=== PATIENT | female | born 2000 | race African-American/Black ===

== ENCOUNTER 2020-09-14 20:08 | Emergency (ER) | payer OTHER ==
[~2020-09-14] VITALS: Ht 157.5 cm; Wt 47.6 kg
[2020-09-14] MEDS ORDERED: OXYC-128 PO (21:07)
[2020-09-14 21:15] VITALS: BP 105/59
--- NOTE | 2020-09-14 21:17 | NUR ---
Patient discharged to home in stable condition. Written and verbal after care instructions given. Patient verbalizes understanding of instructions. Stressed follow up or return to ER for worsening s/s.
== END 2020-09-14 21:24 | disposition home or self-care (01) ==
LOC: ER 20:08
DX: M94.0 Chondrocostal junction syndrome [Tietze] (principal); Z91.013 Allergy to seafood
CPT/HCPCS: 93005; A4663

== ENCOUNTER 2020-10-01 11:38 | Emergency (ER) | payer OTHER ==
[~2020-10-01] VITALS: Ht 157.5 cm; Wt 48.1 kg
[~2020-10-01 11:38] MED LIST: OXYC-128 PO
--- NOTE | 2020-10-01 11:50 | NUR ---
Dr Beatty at the bedside for MSE.
[2020-10-01 12:11] LABS: BASOPHILS % (AUTO) 0.7 % (0.0-2.0); EOSINOPHILS # (AUTO) 0.1 K/uL (0.0-0.7); EOSINOPHILS % (AUTO) 2.5 % (0.0-7.0); HEMATOCRIT 38.6 % (31.2-41.9); HEMOGLOBIN 13.1 g/dL (10.9-14.3); LYMPHOCYTES # (AUTO) 1.4 K/uL (20.0-40.0); LYMPHOCYTES % (AUTO) 31.9 % (20.5-51.5); MEAN CORPUSCULAR HGB CONC 34 g/dL (32.3-35.6); MEAN CORPUSCULAR VOLUME 94.1 fL (75.5-95.3); MONOCYTES # (AUTO) 0.5 K/uL (2.0-10.0); MONOCYTES % (AUTO) 11.2 % (0.0-11.0); NEUTROPHILS # (AUTO) 2.4 K/uL (1.8-8.9); NEUTROPHILS % (AUTO) 53.7 % (38.5-71.5); PLATELET COUNT (AUTO) 192 K/uL (179-408); RED BLOOD CELL COUNT(AUTO) 4.11 MIL/uL (3.63-4.92); WHITE BLOOD COUNT (AUTO) 4.5 K/uL (3.8-11.8)
[2020-10-01 12:18] LABS: CARBON DIOXIDE 26 mmol/L (21-32); CHLORIDE 107 mmol/L (98-107); CREATININE 0.7 mg/dL (0.6-1.3); GLUCOSE 79 mg/dL (74-106); POTASSIUM 3.5 mmol/L (3.5-5.1); UREA NITROGEN, BLOOD 9 mg/dL (7-18)
[2020-10-01 12:46] VITALS: BP 104/60
== END 2020-10-01 12:47 | disposition home or self-care (01) ==
LOC: ER 11:38
DX: N92.0 Excessive and frequent menstruation with regular cycle (principal); N94.6 Dysmenorrhea, unspecified; Z82.49 Family history of ischemic heart disease and other diseases of the circulatory system; Z91.013 Allergy to seafood
CPT/HCPCS: 36415; 76856; 85025; 86850; 86900; 86901; A4663

== ENCOUNTER 2020-10-24 18:22 | Emergency (ER) | payer OTHER ==
[~2020-10-24] VITALS: Ht 157.5 cm; Wt 49.9 kg
[2020-10-24] MEDS ORDERED: OXYC-128 PO (18:54)
--- NOTE | 2020-10-24 19:17 | NUR ---
PT WAS EVALUATED BY DR TANG. PT WAS D/C'd TO HOME. D/C INSTRUCTIONS GIVEN TO THE PT BY DR TANG.
[2020-10-24 19:18] VITALS: BP 125/69
== END 2020-10-24 19:18 | disposition home or self-care (01) ==
LOC: ER 18:25
DX: M94.0 Chondrocostal junction syndrome [Tietze] (principal); Z91.013 Allergy to seafood
CPT/HCPCS: A4663

== ENCOUNTER 2021-02-02 13:29 | Emergency (ER) | payer MEDICAID ==
[~2021-02-02] VITALS: Ht 157.5 cm; Wt 49.9 kg
[2021-02-02 14:19] LABS: *URINE HCG, QUAL NEGATIVE (NEGATIVE)
[2021-02-02] MEDS ORDERED: AMOX500C2 PO (14:39)
[2021-02-02] MEDS ORDERED: IBUPROFEN 600 MG TABLET PO ONE (14:45)
[2021-02-02] MEDS ORDERED: ACETAMINOPHEN ES 500 MG TABLET PO ONE (14:45)
[2021-02-02] MEDS ORDERED: ACETAMINOPHEN ES 500 MG TABLET ONE (14:51)
[2021-02-02] MEDS ORDERED: IBUPROFEN 600 MG TABLET ONE (14:51)
== END 2021-02-02 14:48 | disposition home or self-care (01) ==
LOC: ER 13:29
DX: J02.0 Streptococcal pharyngitis (principal); Z91.013 Allergy to seafood
CPT/HCPCS: 84703; 86403; A4663; A9150

== ENCOUNTER 2021-10-22 19:40 | Emergency (ER) | payer MEDICAID ==
[~2021-10-22] VITALS: Ht 157.5 cm; Wt 52.2 kg
[~2021-10-22 19:40] MED LIST changes: +AMOX500C2 PO
--- NOTE | 2021-10-22 20:00 | NUR ---
Female engine test cell technician accompanied female patient for MSE
[2021-10-22] MEDS ORDERED: OXYC-128 PO (20:21)
[2021-10-22] MEDS ORDERED: OXYCODONE/APAP 5-325 MG TABLET ONE (20:26)
--- NOTE | 2021-10-22 20:27 | NUR ---
Patient discharged to home in stable condition. Written and verbal after care instructions given. Patient verbalizes understanding of instructions. Stressed follow up or return to ER for worsening s/s. Patient is a/ox4, NAD noted, patient is able to walk with steady gait
[2021-10-22 20:28] VITALS: BP 107/74
[2021-10-22] MEDS ORDERED: OXYCODONE/APAP 5-325 MG TABLET PO ONE (20:45)
== END 2021-10-22 20:45 | disposition home or self-care (01) ==
LOC: ER 19:40
DX: M54.89 Other dorsalgia (principal)
CPT/HCPCS: A4663

== ENCOUNTER 2021-10-24 20:45 | Emergency (ER) | payer SELFPAY ==
--- NOTE | 2021-10-24 21:50 | NUR ---
Patient was called to be triaged but was not in the waiting room or outside of ER.
--- NOTE | 2021-10-24 22:00 | NUR ---
Patient was called to be triaged but was not present in the waiting room or outside of ER.
--- NOTE | 2021-10-24 23:00 | NUR ---
Patient was called to be triaged but was not present in the waiting room or outside of ER. PATIENT WAS NOT TRIAGED OR SEEN BY ERMD.
== END 2021-10-24 23:00 | disposition left against medical advice (07) ==
LOC: ER 20:52
DX: Z53.21 Procedure and treatment not carried out due to patient leaving prior to being seen by health care provider (principal)

== ENCOUNTER 2021-10-27 16:42 | Emergency (ER) | payer MEDICAID ==
[~2021-10-27] VITALS: Ht 157.5 cm; Wt 52.2 kg
[2021-10-27] MEDS ORDERED: MORPHINE SULFATE 2 MG/1 ML DISP.SYRIN IV ONE (17:00)
[2021-10-27] MEDS ORDERED: IV NORMAL SALINE 500 ML BAG IV ONE (17:00)
--- NOTE | 2021-10-27 17:15 | NUR ---
Female medical record librarian accompanied female patient for buttocks examination.
[2021-10-27] MEDS ORDERED: MORPHINE SULFATE 4 MG/1 ML DISP.SYRIN ONE (17:27)
[2021-10-27 17:35] LABS: HEMATOCRIT 37.5 % (31.2-41.9); MEAN CORPUSCULAR VOLUME 92.7 fL (75.5-95.3); PLATELET COUNT (AUTO) 260 K/uL (179-408)
[2021-10-27 17:40] LABS: CARBON DIOXIDE 27 mmol/L (21-32); CHLORIDE 101 mmol/L (98-107); CREATININE 0.7 mg/dL (0.6-1.3); GLUCOSE 72 mg/dL (74-106); POTASSIUM 3.2 mmol/L (3.5-5.1); UREA NITROGEN, BLOOD 7 mg/dL (7-18)
--- NOTE | 2021-10-27 18:00 | NUR ---
Dr. Thomas notified about patient's seafood allergy. stated that patient is clear to receive IV contrast.
[2021-10-27] MEDS ORDERED: IV NORMAL SALINE 250 ML IV ONE (18:20)
[2021-10-27] MEDS ORDERED: IOHEXOL 300MG/ML 100 ML INFUS..BTL ONE (18:20)
[2021-10-27] MEDS ORDERED: SWABABLE VALVE TRANSFER SET EA MC ONE (18:20)
--- NOTE | 2021-10-27 18:28 | NUR ---
Patient taken for CT.
--- NOTE | 2021-10-27 18:42 | NUR ---
Patient back from CT Scan.
[2021-10-27] MEDS ORDERED: KETOROLAC TROMETHAMINE 30 MG INJ ONE (19:11)
[2021-10-27] MEDS ORDERED: KETOROLAC TROMETHAMINE 30 MG INJ IVP ONE (19:15)
[2021-10-27] MEDS ORDERED: IBUP-1955 PO (20:47)
[2021-10-27] MEDS ORDERED: HYDR-4209 PO (20:47)
--- NOTE | 2021-10-27 21:02 | NUR ---
Patient discharged to home in stable condition. Written and verbal after care instructions given. Patient verbalizes understanding of instructions. Stressed follow up or return to ER for worsening s/s. pt ambulated wtih steady gait. denies pain. AOx4
[2021-10-27 21:03] VITALS: BP 108/88
== END 2021-10-27 21:04 | disposition home or self-care (01) ==
LOC: ER 16:42
DX: M79.9 Soft tissue disorder, unspecified (principal); R22.2 Localized swelling, mass and lump, trunk
CPT/HCPCS: 36415; 74177; 80048; 84702; 85025; 96361; 96374; 96375; 99285; J1885; J2270; J7040; Q9967; A4663

== ENCOUNTER 2022-01-04 01:15 | Emergency (ER) | payer MEDICAID ==
[~2022-01-04] VITALS: Ht 162.6 cm; Wt 65.8 kg
[~2022-01-04 01:15] MED LIST changes: -AMOX500C2 PO; +HYDR-4209 PO; +IBUP-1955 PO; -OXYC-128 PO
--- NOTE | 2022-01-04 01:50 | NUR ---
Patient arrived at the ER with complain of sorethroat x1 day.
--- NOTE | 2022-01-04 01:52 | NUR ---
Dr. Negrete on bedside for MSE.
--- NOTE | 2022-01-04 03:03 | NUR ---
Dr Ibanez at bedside.
[2022-01-04] MEDS ORDERED: NAPR-1164 PO (03:07)
[2022-01-04] MEDS ORDERED: DEXAMETHASONE SOD PHOSPHATE 4 MG INJ ONE (03:14)
[2022-01-04] MEDS ORDERED: LIDOCAINE VISCUS 2% 15 ML UDC ONE ×2 (03:14→03:15)
[2022-01-04] MEDS ORDERED: KETOROLAC TROMETHAMINE 30 MG INJ ONE (03:14)
[2022-01-04] MEDS ORDERED: LIDOCAINE VISCUS 2% 15 ML UDC MM ONE (03:15)
[2022-01-04] MEDS ORDERED: KETOROLAC TROMETHAMINE 30 MG INJ IM ONE (03:15)
[2022-01-04] MEDS ORDERED: DEXAMETHASONE SOD PHOSPHATE 4 MG INJ IM ONE (03:15)
[2022-01-04] MEDS ORDERED: DEXAMETHASONE SOD PHOSPHATE 10 MG INJ ONE (03:17)
[2022-01-04] MEDS ORDERED: NAPROXEN 500 MG TABLET PO ONE (03:30)
[2022-01-04 03:46] VITALS: BP 115/55
== END 2022-01-04 03:46 | disposition home or self-care (01) ==
LOC: ER 01:20
DX: J02.9 Acute pharyngitis, unspecified (principal); F17.210 Nicotine dependence, cigarettes, uncomplicated; Z91.013 Allergy to seafood; J45.909 Unspecified asthma, uncomplicated
CPT/HCPCS: 99284; 99406; 86403; 87070; 96372 ×2; J1100; J1885; A4663